=== PATIENT | male | born 1950 | race Caucasian/White ===

== ENCOUNTER 2017-06-20 14:32 | Outpatient (CLI) | payer MEDICARE, OTHER ==
[2017-06-20 13:42] LABS: BASOPHILS % (AUTO) 0.6 %; EOSINOPHILS # (AUTO) 0.2 10^3/uL (0.0-0.7); EOSINOPHILS % (AUTO) 4.2 %; HCT - HEMATOCRIT 42.8 % (42.0-52.0); HGB - HEMOGLOBIN 14.7 g/dL (14.0-18.0); LYMPHOCYTES # (AUTO) 1.8 10^3/uL (1.5-3.5); LYMPHOCYTES % (AUTO) 33.6 %; MEAN CORPUSCULAR HEMOGLOBIN 33.1 pg (27.0-31.0); MEAN CORPUSCULAR HGB CONC 34.3 g/dL (32.0-36.0); MEAN CORPUSCULAR VOLUME 96.3 fL (80.0-94.0); MEAN PLATELET VOLUME 9.6 fL (7.4-11.4); MONOCYTES # (AUTO) 0.5 10^3/uL (0.0-1.0); MONOCYTES % (AUTO) 9.3 %; NEUTROPHILS # (AUTO) 2.8 10^3/uL (1.5-6.6); NEUTROPHILS % (AUTO) 52.3 %; NUCLEATED RED BLOOD CELLS AUTO 0.1 /100WBC; RED BLOOD COUNT 4.44 10^6/uL (4.70-6.10); RED CELL DISTRIBUTION WIDTH 12.9 % (12.0-15.0); UNCORRECTED WHITE BLOOD COUNT 5.3 x10^3/uL; WHITE BLOOD COUNT 5.3 x10^3/uL (4.8-10.8)
[2017-06-20 14:03] LABS: ALBUMIN/GLOBULIN RATIO 1.6 (1.0-2.2); BILIRUBIN,TOTAL 0.9 mg/dL (0.2-1.0); CREATININE 0.9 mg/dL (0.6-1.2); TOTAL PROTEIN 6.8 g/dL (6.7-8.2)
== END 2017-06-20 14:33 | disposition home or self-care (01) ==
LOC: LAB.R 14:32
PROVIDERS: ATTEND Internal Medicine
DX: I10 Essential (primary) hypertension (principal); Z12.5 Encounter for screening for malignant neoplasm of prostate
CPT/HCPCS: 80053; 85025; G0103; 84153

== ENCOUNTER 2017-12-11 08:00 | Outpatient (CLI) | payer MEDICARE, OTHER ==
[2017-12-11 13:52] LABS: ALBUMIN 4.3 g/dL (3.2-5.5); ALBUMIN/GLOBULIN RATIO 1.6 (1.0-2.2); BILIRUBIN,TOTAL 0.9 mg/dL (0.2-1.0); CALCIUM 9.1 mg/dL (8.5-10.3); CREATININE 0.9 mg/dL (0.6-1.2)
== END 2017-12-11 08:01 ==
LOC: LAB.R 08:00
PROVIDERS: ATTEND Nurse Practitioner Primary Care
DX: I49.3 Ventricular premature depolarization (principal)
CPT/HCPCS: 80053

== ENCOUNTER 2018-02-13 08:00 | Outpatient (CLI) | payer MEDICARE, OTHER ==
[2018-02-13 11:52] LABS: BASOPHILS % (AUTO) 0.5 %; EOSINOPHILS # (AUTO) 0.2 10^3/uL (0.0-0.7); EOSINOPHILS % (AUTO) 4.1 %; HGB - HEMOGLOBIN 14.6 g/dL (14.0-18.0); LYMPHOCYTES # (AUTO) 1.5 10^3/uL (1.5-3.5); LYMPHOCYTES % (AUTO) 31.9 %; MEAN CORPUSCULAR HEMOGLOBIN 34.1 pg (27.0-31.0); MEAN CORPUSCULAR HGB CONC 34.1 g/dL (32.0-36.0); MEAN PLATELET VOLUME 9.8 fL (7.4-11.4); MONOCYTES # (AUTO) 0.5 10^3/uL (0.0-1.0); NEUTROPHILS # (AUTO) 2.5 10^3/uL (1.5-6.6); NEUTROPHILS % (AUTO) 53.5 %; PLT - PLATELET COUNT 178 10^3/uL (130-450); RED BLOOD COUNT 4.27 10^6/uL (4.70-6.10); WHITE BLOOD COUNT 4.8 x10^3/uL (4.8-10.8)
[2018-02-13 12:14] LABS: ALBUMIN 3.9 g/dL (3.2-5.5); ALBUMIN/GLOBULIN RATIO 1.4 (1.0-2.2); ALKALINE PHOSPHATASE 44 IU/L (42-121); ALT ALANINE AMINOTRANSFERASE 21 IU/L (10-60); AST ASPARTATE AMINOTRANSFERASE 27 IU/L (10-42); BILIRUBIN,TOTAL 1.1 mg/dL (0.2-1.0); BUN - BLOOD UREA NITROGEN 16 mg/dL (6-20); CALCIUM 8.8 mg/dL (8.5-10.3); CARBON DIOXIDE - CO2 27 mmol/L (21-32); CHLORIDE 102 mmol/L (101-111); CHOL/HDL RATIO 2.6 (<5.0); CHOLESTEROL 155 mg/dL; CREATININE 0.9 mg/dL (0.6-1.2); GFR - MDRD 84 (>89); GLUCOSE 110 mg/dL (70-100); HDL CHOLESTEROL 59 mg/dL; LDL CHOLESTEROL,CALCULATED 87 mg/dL; LDL/HDL RATIO 1.5 (<3.6); SODIUM 137 mmol/L (135-145); TOTAL PROTEIN 6.6 g/dL (6.7-8.2); VLDL CHOLESTEROL 9 mg/dL
== END 2018-02-13 08:01 | disposition home or self-care (01) ==
LOC: LAB.R 08:00
PROVIDERS: ATTEND Internal Medicine
DX: G60.9 Hereditary and idiopathic neuropathy, unspecified (principal); I49.3 Ventricular premature depolarization; K22.70 Barrett's esophagus without dysplasia; M19.90 Unspecified osteoarthritis, unspecified site; I10 Essential (primary) hypertension; Z79.899 Other long term (current) drug therapy
CPT/HCPCS: 80053; 80061; 83721; 85025

== ENCOUNTER 2018-03-03 08:03 | Outpatient (CLI) | payer MEDICARE, OTHER ==
[2018-03-03 12:58] LABS: HB2 TOTAL 16.9 g/dL; HEMOGLOBIN A1C 0.6 g/dL; HEMOGLOBIN A1C % 5.4 % (4.6-6.2)
[2018-03-04 10:07] LABS: HEPATITIS C ANTIBODY NON-REACTIVE (NON-REACTIVE)
== END 2018-03-03 08:04 | disposition home or self-care (01) ==
LOC: LAB.R 08:03
PROVIDERS: ATTEND Internal Medicine
DX: Z00.8 Encounter for other general examination (principal); R73.9 Hyperglycemia, unspecified; Z72.89 Other problems related to lifestyle
CPT/HCPCS: 82947; 83036; 86803

== ENCOUNTER 2018-05-28 18:34 | Outpatient (CLI) | payer MEDICARE, OTHER ==
--- NOTE | 2018-05-29 04:27 | XRAY Report ---
Reason: HIP JOINT PAIN,RIGHT Procedure Date: 05/28/2018 Accession Number: [id number] / [id number] Procedure: XR - Hip w/Pelvis 2-3V RT CPT Code: FULL RESULT: EXAM: RIGHT HIP AND PELVIS RADIOGRAPHY EXAM DATE: 05/28/2018 06:56 PM. HISTORY: HIP JOINT PAIN,RIGHT. COMPARISONS: None. TECHNIQUE: 1 view of the pelvis and 1 view of the hip. FINDINGS: Bones: Normal. No fracture or bone lesion. Joints: Mild osteoarthritis. Soft Tissues: Normal. No soft tissue swelling. IMPRESSION: Mild osteoarthritis. No evidence of fracture. RADIA
== END 2018-05-28 18:35 | disposition home or self-care (01) ==
LOC: DI 18:34
PROVIDERS: ATTEND Internal Medicine
DX: M16.11 Unilateral primary osteoarthritis, right hip (principal)

== ENCOUNTER 2018-11-09 13:49 | Outpatient (CLI) | payer MEDICARE, OTHER | END 2018-11-09 13:50 | disposition home or self-care (01) | LOC: DI 13:49 | PROVIDERS: ATTEND Nurse Practitioner | DX: I49.9 Cardiac arrhythmia, unspecified (principal) | CPT/HCPCS: 93306 ==

== ENCOUNTER 2018-12-01 09:20 | Emergency (ER) | payer MEDICARE, OTHER ==
[2018-12-01 09:44] VITALS: BP 149/78
[2018-12-01] MEDS ORDERED: DEXAMETHASONE 10 MG/ML VIAL PO STA (11:16)
--- NOTE | 2018-12-01 11:18 | ED Physician Documentation ---
PD HPI BACK PAIN - Stated complaint Stated Complaint: BACK PX - Chief complaint Chief Complaint: Back Pain - History obtained from History obtained from: Patient - History of Present Illness Timing - onset: How many weeks ago (3) Timing - duration: Weeks (3) Timing - details: Abrupt onset, Still present, Waxing and waning Location: Lower, Left Quality: Pain, Spasm, Sharp, Similar to prior episodes Associated symptoms: Numbness. No: Fever, Weakness, Incontinent of urine, Lorena ble to urinate, Hematuria, Incontinent of stool Improves with: Rest, Ice, Position Worsened by: Movement, Lifting Contributing factors: Other (standing prolonged on uneven ground) Similar symptoms before: Has not had sx before Recently seen: Not recently seen - Additional information Additional information: Previously well 68-year-old male was helping out at the [employer] and he was standing in a position for extended period time on uneven ground and the following day developed some pain in his lower back on the left side radiating down the left leg. This seemed to get a little bit better and yesterday was much worse. He has got some numbness into the dorsum of the foot and he has pain down the side of the leg and into the sciatic notch on the left side. He denies any saddle anesthesia or incontinence of urine or stool. Review of Systems Constitutional: denies: Fever, Chills, Myalgias Eyes: denies: Decreased vision Ears: denies: Ear pain Nose: denies: Congestion Respiratory: denies: Cough GI: denies: Abdominal Pain, Nausea : denies: Dysuria, Frequency Skin: denies: Rash Musculoskeletal: reports: Back pain, Extremity pain. denies: Neck pain Neurologic: reports: Numbness. denies: Generalized weakness, Focal weakness PD PAST MEDICAL HISTORY - Past Medical History Cardiovascular: Hypertension Respiratory: None Endocrine/Autoimmune: None GI: GERD, Hepatitis : Kidney stones Psych: None, Claustrophobia Musculoskeletal: None Derm: None - Past Surgical History General: Colonoscopy, EGD, Other Ortho: Spine surgery HEENT: Tonsil/Adenoidectomy - Present Medications Home Medications: Ambulatory Orders Medication Instructions Recorded Confirmed Lansoprazole [Prevacid] 30 mg PO DAILY 05/11/13 08/07/16 Losartan Potassium [Cozaar] 100 mg PO DAILY 05/11/13 08/07/16 Multivitamin [Multi-Vitamin Daily] 1 each PO DAILY 05/11/13 08/07/16 Tumeric 1 tab PO DAILY 05/11/13 08/07/16 Vitamin B Complex 1 each PO DAILY 05/11/13 08/07/16 [place]-3 Fatty Acids [Fish Oil] 300 mg ORAL DAILY 06/22/14 08/07/16 Cyclobenzaprine [Flexeril] 10 mg PO TID PRN #20 tablet 12/01/18 Hydrocodone/Acetaminophen 1 - 2 each PO Q6H PRN #14 tablet 12/01/18 [Hydrocodon-Acetaminophen 5-325] - Allergies Allergies/Adverse Reactions: Allergies Allergy/AdvReac Type Severity Reaction Status Date / Time No Known Drug Allergies Allergy Verified 12/01/18 09:43 PD ED PE NORMAL - Vitals Vital signs reviewed: Yes (hypertensive ) - General General: Alert and oriented X 3, No acute distress, Well developed/nourished - HEENT HEENT: Atraumatic, PERRL, EOMI - Neck Neck: Supple, no meningeal sign - Respiratory Respiratory: No respiratory distress - Back Back: No CVA TTP, No spinal TTP, Other (There is point tenderness to the paraspinous muscles on the left side extending into the sciatic notch on the left side. ) - Derm Derm: Normal color, Warm and dry, No rash - Extremities Extremities: No deformity, No edema - Neuro Neuro: Alert and oriented X 3, tip mender 2-12 intact, No motor deficit, No sensory deficit, Normal speech Eye Opening: Spontaneous Motor: Obeys Commands Verbal: Oriented GCS Score: 15 - Psych Psych: Normal mood, Normal affect Results - Vitals Vitals: Vital Signs - 24 hr 12/01/18 09:42 Temperature 36.0 C L Heart Rate 65 Respiratory 20 Rate Blood Pressure 149/78 H O2 Saturation 100 Oxygen O2 Source Room air PD MEDICAL DECISION MAKING - ED course Complexity details: considered differential, d/w patient ED course: 68-year-old male with acute sciatica is administered dexamethasone 10 mg orally here in the ED and we will place him on some pain medication and muscle relaxant. Departure - Departure Disposition: 01 Home, Self Care Clinical Impression: Sciatica Qualifiers: Laterality: left Qualified Code(s): M54.32 - Sciatica, left side Instructions: ED Sciatica Follow-Up: Sugey Escobar ARNP, [facility] [Primary Care Provider] - Prescriptions: Cyclobenzaprine [Flexeril] 10 mg PO TID PRN #20 tablet PRN Reason: Spasms Hydrocodone/Acetaminophen [Hydrocodon-Acetaminophen 5-325] 1 - 2 each PO Q6H PRN #14 tablet PRN Reason: pain
[2018-12-01] MEDS ORDERED: CHERRY SYRUP 10 ML UDC PO ONE (11:23)
== END 2018-12-01 11:24 | disposition home or self-care (01) ==
LOC: ED 09:20
DX: M54.32 Sciatica, left side (principal); I10 Essential (primary) hypertension
CPT/HCPCS: 99283; A9270

== ENCOUNTER 2018-12-17 15:11 | Outpatient (CLI) | payer MEDICARE, OTHER ==
--- NOTE | 2018-12-18 13:18 | MRI Report ---
Reason: SCIATICA,LEFT,PERIPHERAL NEUROPATHY Procedure Date: 12/17/2018 Accession Number: [id number] / [id number] Procedure: MRI - Lumbar Spine W/O CPT Code: FULL RESULT: EXAM: MRI LUMBAR SPINE WITHOUT CONTRAST EXAM DATE: 12/17/2018 04:19 PM. CLINICAL HISTORY: Sciatica, left, peripheral neuropathy. COMPARISON: None. TECHNIQUE: Multiplanar, multisequence T1-weighted and fluid-sensitive sequences of the lumbar spine from T12 to S1 without contrast. Other: None. FINDINGS: Spinal Canal: The conus terminates at L1. The conus medullaris and cauda equina are unremarkable. Alignment: No scoliosis or spondylolisthesis. Bone Marrow: Five [id number] lumbar vertebral bodies are assumed. No gross fractures or bone lesions. No bone marrow replacement. Disk Levels/Facets: T12-L1: Some disk dehydration. Prominent facets. No stenosis. L1-L2: Some disk dehydration. Prominent facets, no stenosis. L2-L3: Disk dehydration. Prominent facets, no stenosis. L3-L4: Disk dehydration, prominent facets. No stenosis. L4-L5: Disk dehydration, slightly short pedicles, prominent facets and thickened ligamentum flavum. Inferior left lateral disk extrusion extends into the lateral recess and causes effacement of the left L5 root in the subarticular zone. Series 301 image 4, series 601 image 11. This measures 5.7 x 9.2 mm transversely and extends inferiorly for a distance of 12.1 mm. L5-S1: A mild broad-based disk bulge is seen. Prominent facets. No stenosis. Musculature: Moderate fatty atrophy of the multifidus muscle is seen. Other: The partially visualized retroperitoneum is unremarkable. IMPRESSION: 1. Spinal cord terminates at L1 which is normal. No scoliosis, no listhesis is noted. Moderate multifidus muscle fatty atrophy is seen. No fractures. 2. L2-L3 shows disk dehydration and prominent facets, no stenosis. 3. L3-L4 shows disk dehydration, prominent facets and no stenosis. 4. L4-L5 shows disk dehydration, short pedicles and prominent facets. Inferior left lateral disk extrusion extends to the lateral recess with effacement of the left L5 root in the subarticular zone. 5. L5-S1 shows a mild broad-based bulge and prominent facets but no stenosis. Comment: The following findings are so common in adults without low back pain that while we report their presence, they must be interpreted with caution and in the context of the clinical situation. (Reference Jenniek et al, Spine 2001) Prevalence of findings in patients without low back pain: Disk degeneration (any evidence): 92% Disk desiccation/T2 signal loss: 83% Disk height loss: 56% Disk bulge: 64% Disk protrusion: 32% Annular tear/high intensity zone: 38% RADIA
== END 2018-12-17 15:12 | disposition home or self-care (01) ==
LOC: DI 15:11
PROVIDERS: ATTEND Nurse Practitioner
DX: M51.36 Other intervertebral disc degeneration, lumbar region (principal); M51.26 Other intervertebral disc displacement, lumbar region
CPT/HCPCS: 72148

== ENCOUNTER 2019-01-16 15:37 | Outpatient (CLI) | payer MEDICARE, OTHER ==
[2019-01-16 16:12] LABS: BASOPHILS % (AUTO) 0.8 %; EOSINOPHILS # (AUTO) 0.1 10^3/uL (0.0-0.7); EOSINOPHILS % (AUTO) 2.7 %; HGB - HEMOGLOBIN 14.4 g/dL (14.0-18.0); LYMPHOCYTES # (AUTO) 1.8 10^3/uL (1.5-3.5); LYMPHOCYTES % (AUTO) 33.8 %; MEAN CORPUSCULAR HEMOGLOBIN 32.4 pg (27.0-31.0); MEAN CORPUSCULAR HGB CONC 33.4 g/dL (32.0-36.0); MEAN CORPUSCULAR VOLUME 97.3 fL (80.0-94.0); MEAN PLATELET VOLUME 8.6 fL (7.4-11.4); MONOCYTES # (AUTO) 0.5 10^3/uL (0.0-1.0); MONOCYTES % (AUTO) 9.9 %; NEUTROPHILS # (AUTO) 2.7 10^3/uL (1.5-6.6); NEUTROPHILS % (AUTO) 52.8 %; PLT - PLATELET COUNT 208 10^3/uL (130-450); RED BLOOD COUNT 4.44 10^6/uL (4.70-6.10); RED CELL DISTRIBUTION WIDTH 12.9 % (12.0-15.0); WHITE BLOOD COUNT 5.2 x10^3/uL (4.8-10.8)
[2019-01-16 16:18] LABS: INR 1.1 (0.8-1.2); PT - PROTHROMBIN TIME 11.9 secs (9.9-12.6)
[2019-01-16 16:23] LABS: ALBUMIN 4.4 g/dL (3.2-5.5); ALBUMIN/GLOBULIN RATIO 1.6 (1.0-2.2); BILIRUBIN,TOTAL 0.6 mg/dL (0.2-1.0); CALCIUM 9.1 mg/dL (8.5-10.3); CREATININE 0.9 mg/dL (0.6-1.2); TOTAL PROTEIN 7.2 g/dL (6.7-8.2)
[2019-01-16 16:47] LABS: BILIRUBIN,URINE NEGATIVE (NEGATIVE); GLUCOSE, URINE (UA) NEGATIVE (NEGATIVE); KETONES,URINE (UA) NEGATIVE (NEGATIVE); LEUKOCYTE ESTERASE, URINE NEGATIVE (NEGATIVE); NITRITE,URINE NEGATIVE (NEGATIVE); OCCULT BLOOD,URINE NEGATIVE (NEGATIVE); PH,URINE 5.5 PH (5.0-7.5); PROTEIN,URINE NEGATIVE (NEGATIVE); UROBILINOGEN,URINE 0.2 (NORMAL) E.U./dL (NORMAL)
[2019-01-16 16:48] LABS: CLARITY,URINE CLEAR (CLEAR)
== END 2019-01-16 15:38 | disposition home or self-care (01) ==
LOC: LAB 15:37
PROVIDERS: ATTEND Neurological Surgery
DX: Z01.812 Encounter for preprocedural laboratory examination (principal); R20.0 Anesthesia of skin; M51.16 Intervertebral disc disorders with radiculopathy, lumbar region
CPT/HCPCS: 36415; 80053; 81001; 81003; 85025; 85610

== ENCOUNTER 2019-02-26 07:36 | Day surgery (SDC) | payer MEDICARE, OTHER ==
[~2019-02-26 07:36] MED LIST: LIDO GARGLE 30 ML BOTTLE ONE
[2019-02-26] MEDS ORDERED: LACTATED RINGERS 1,000 ML IV ONE (07:41)
[2019-02-26] MEDS ORDERED: MIDAZOLAM 2 MG/2 ML VIAL IVP ONE (08:42)
[2019-02-26] MEDS ORDERED: fentaNYL 250 MCG/5 ML VIAL IVP ONE (08:42)
[2019-02-26 10:37] VITALS: BP 126/74
== END 2019-02-26 07:37 | disposition home or self-care (01) ==
LOC: SDS 07:36
PROVIDERS: ATTEND Surgery
PROC: 0DBN8ZZ Excision of Sigmoid Colon, Via Natural or Artificial Opening Endoscopic (ICD-10-PCS; principal; 2019-02-26 08:30)
PROC: 0DB58ZX Excision of Esophagus, Via Natural or Artificial Opening Endoscopic, Diagnostic (ICD-10-PCS; 2019-02-26 08:30)
DX: Z12.11 Encounter for screening for malignant neoplasm of colon (principal); K63.5 Polyp of colon; K57.30 Diverticulosis of large intestine without perforation or abscess without bleeding; K64.8 Other hemorrhoids; K22.70 Barrett's esophagus without dysplasia; K44.9 Diaphragmatic hernia without obstruction or gangrene; I10 Essential (primary) hypertension; Z85.828 Personal history of other malignant neoplasm of skin; Z79.899 Other long term (current) drug therapy
CPT/HCPCS: 43239; 45380; A9270; J3010; J7120

== ENCOUNTER 2019-05-18 08:13 | Outpatient (CLI) | payer MEDICARE, OTHER ==
[2019-05-18 09:18] LABS: BASOPHILS % (AUTO) 0.5 %; EOSINOPHILS # (AUTO) 0.4 10^3/uL (0.0-0.7); EOSINOPHILS % (AUTO) 7.1 %; HGB - HEMOGLOBIN 15.1 g/dL (14.0-18.0); LYMPHOCYTES # (AUTO) 1.8 10^3/uL (1.5-3.5); LYMPHOCYTES % (AUTO) 28.8 %; MEAN CORPUSCULAR HEMOGLOBIN 33.6 pg (27.0-31.0); MEAN CORPUSCULAR HGB CONC 34.6 g/dL (32.0-36.0); MEAN CORPUSCULAR VOLUME 96.9 fL (80.0-94.0); MEAN PLATELET VOLUME 10.6 fL (7.4-11.4); MONOCYTES # (AUTO) 0.6 10^3/uL (0.0-1.0); MONOCYTES % (AUTO) 9.8 %; NEUTROPHILS # (AUTO) 3.4 10^3/uL (1.5-6.6); NEUTROPHILS % (AUTO) 53.6 %; PLT - PLATELET COUNT 200 10^3/uL (130-450); RED CELL DISTRIBUTION WIDTH 12.3 % (12.0-15.0); WHITE BLOOD COUNT 6.2 x10^3/uL (4.8-10.8)
[2019-05-18 09:39] LABS: ALBUMIN 4.1 g/dL (3.2-5.5); ALBUMIN/GLOBULIN RATIO 1.4 (1.0-2.2); ALKALINE PHOSPHATASE 43 IU/L (42-121); ALT ALANINE AMINOTRANSFERASE 24 IU/L (10-60); AST ASPARTATE AMINOTRANSFERASE 26 IU/L (10-42); BILIRUBIN,TOTAL 0.7 mg/dL (0.2-1.0); BUN - BLOOD UREA NITROGEN 19 mg/dL (6-20); CALCIUM 9.1 mg/dL (8.5-10.3); CARBON DIOXIDE - CO2 30 mmol/L (21-32); CHLORIDE 97 mmol/L (101-111); CHOL/HDL RATIO 3.1 (<5.0); CHOLESTEROL 163 mg/dL; CREATININE 0.9 mg/dL (0.6-1.2); GFR - MDRD 83 (>89); GLUCOSE 107 mg/dL (70-100); HDL CHOLESTEROL 53 mg/dL; SODIUM 137 mmol/L (135-145); TOTAL PROTEIN 7.1 g/dL (6.7-8.2)
== END 2019-05-18 08:14 | disposition home or self-care (01) ==
LOC: LAB 08:13
PROVIDERS: ATTEND Nurse Practitioner
DX: Z00.00 Encounter for general adult medical examination without abnormal findings (principal); I49.9 Cardiac arrhythmia, unspecified; I10 Essential (primary) hypertension; G64 Other disorders of peripheral nervous system; N20.0 Calculus of kidney; K22.70 Barrett's esophagus without dysplasia; Z12.5 Encounter for screening for malignant neoplasm of prostate
CPT/HCPCS: 36415; 80061; 82607; G0103; 80053; 83721; 84153; 84443; 85025

== ENCOUNTER 2019-07-17 10:49 | Outpatient (CLI) | payer MEDICARE, OTHER ==
[2019-07-17 11:21] LABS: BASOPHILS % (AUTO) 0.3 %; EOSINOPHILS # (AUTO) 0.1 10^3/uL (0.0-0.7); EOSINOPHILS % (AUTO) 1.8 %; HGB - HEMOGLOBIN 13.1 g/dL (14.0-18.0); LYMPHOCYTES # (AUTO) 1.2 10^3/uL (1.5-3.5); LYMPHOCYTES % (AUTO) 17.9 %; MEAN CORPUSCULAR HEMOGLOBIN 31.7 pg (27.0-31.0); MEAN CORPUSCULAR HGB CONC 33.5 g/dL (32.0-36.0); MEAN CORPUSCULAR VOLUME 94.7 fL (80.0-94.0); MEAN PLATELET VOLUME 9.3 fL (7.4-11.4); MONOCYTES # (AUTO) 0.9 10^3/uL (0.0-1.0); MONOCYTES % (AUTO) 12.9 %; NEUTROPHILS # (AUTO) 4.5 10^3/uL (1.5-6.6); NEUTROPHILS % (AUTO) 66.8 %; PLT - PLATELET COUNT 252 10^3/uL (130-450); RED BLOOD COUNT 4.13 10^6/uL (4.70-6.10); RED CELL DISTRIBUTION WIDTH 12.2 % (12.0-15.0); WHITE BLOOD COUNT 6.7 x10^3/uL (4.8-10.8)
[2019-07-17 11:51] LABS: ALBUMIN 3.7 g/dL (3.2-5.5); BILIRUBIN,TOTAL 0.6 mg/dL (0.2-1.0); CALCIUM 8.9 mg/dL (8.5-10.3); CREATININE 0.8 mg/dL (0.6-1.2); CRP - C-REACTIVE PROTEIN 10.2 mg/dL (0-1.0); TOTAL PROTEIN 7.3 g/dL (6.7-8.2)
== END 2019-07-17 10:50 | disposition home or self-care (01) ==
LOC: LAB 10:49
PROVIDERS: ATTEND Nurse Practitioner
DX: H53.9 Unspecified visual disturbance (principal); R51 Headache
CPT/HCPCS: 36415; 80053; 85025; 85651; 86140

== ENCOUNTER 2019-08-31 11:26 | Outpatient (CLI) | payer MEDICARE, OTHER ==
[2019-08-31 11:53] LABS: BASOPHILS % (AUTO) 0.5 %; EOSINOPHILS # (AUTO) 0.2 10^3/uL (0.0-0.7); EOSINOPHILS % (AUTO) 2.9 %; HGB - HEMOGLOBIN 15.4 g/dL (14.0-18.0); LYMPHOCYTES # (AUTO) 1.5 10^3/uL (1.5-3.5); LYMPHOCYTES % (AUTO) 25.6 %; MEAN CORPUSCULAR HEMOGLOBIN 32.5 pg (27.0-31.0); MEAN CORPUSCULAR HGB CONC 33.3 g/dL (32.0-36.0); MEAN CORPUSCULAR VOLUME 97.7 fL (80.0-94.0); MEAN PLATELET VOLUME 9.6 fL (7.4-11.4); MONOCYTES # (AUTO) 0.7 10^3/uL (0.0-1.0); MONOCYTES % (AUTO) 12.2 %; NEUTROPHILS # (AUTO) 3.4 10^3/uL (1.5-6.6); NEUTROPHILS % (AUTO) 58.3 %; PLT - PLATELET COUNT 262 10^3/uL (130-450); RED BLOOD COUNT 4.74 10^6/uL (4.70-6.10); WHITE BLOOD COUNT 5.8 x10^3/uL (4.8-10.8)
[2019-08-31 12:12] LABS: ALBUMIN/GLOBULIN RATIO 1.3 (1.0-2.2); BILIRUBIN,TOTAL 0.6 mg/dL (0.2-1.0); CALCIUM 9.1 mg/dL (8.5-10.3); CREATININE 0.9 mg/dL (0.6-1.2)
[2019-08-31 12:14] LABS: HB2 TOTAL 15.6 g/dL; HEMOGLOBIN A1C 0.76 g/dL; HEMOGLOBIN A1C % 6.6 % (4.6-6.2)
== END 2019-08-31 11:27 | disposition home or self-care (01) ==
LOC: LAB 11:26
PROVIDERS: ATTEND Nurse Practitioner
DX: M79.10 Myalgia, unspecified site (principal); R73.9 Hyperglycemia, unspecified; R51 Headache; R73.01 Impaired fasting glucose; K22.70 Barrett's esophagus without dysplasia
CPT/HCPCS: 36415; 80053; 83036; 85025; 85651; 86140

== ENCOUNTER 2019-09-01 09:59 | Outpatient (CLI) | payer MEDICARE, OTHER ==
[2019-09-01 10:58] LABS: RHEUMATOID FACTOR NEGATIVE (Negative)
[2019-09-03 11:20] LABS: ANA SCREEN NEGATIVE (NEGATIVE)
== END 2019-09-01 10:00 | disposition home or self-care (01) ==
LOC: LAB 09:59
PROVIDERS: ATTEND Nurse Practitioner
DX: M79.10 Myalgia, unspecified site (principal); R51 Headache
CPT/HCPCS: 36415; 84550; 86038; 86200; 86430

== ENCOUNTER 2019-12-11 16:04 | Outpatient (CLI) | payer MEDICARE, OTHER ==
--- NOTE | 2019-12-11 17:29 | XRAY Report ---
Reason: RIB PAIN, LEFT SIDED,PLEURODYNIA Procedure Date: 12/11/2019 Accession Number: [id number] / [id number] Procedure: XR - Ribs Bilat w/Chest 4 View CPT Code: Addended Final Report FULL RESULT: EXAM: BILATERAL RIB RADIOGRAPHY EXAM DATE: 12/11/2019 04:37 PM. CLINICAL HISTORY: RIB PAIN, LEFT SIDED, PLEURODYNIA. COMPARISON: None. TECHNIQUE: 1 view of the chest and 2 views of the ribs. FINDINGS: Bones: Left seventh rib fracture posteriorly. Lungs: No focal opacities. No pneumothorax. No pleural effusions. Mediastinum: Heart and mediastinal contours are unremarkable. Other: None. IMPRESSION: Left seventh rib fracture RADIA The call report notification system was initiated by Dr. Elsie Mendez at 05:28 PM on 12/11/2019. ADDENDUM: 12/11/19 17:30 The above call report findings were discussed with Dr Escobar by Dr. Elsie Mendez at 05:30 PM on 12/11/2019.
== END 2019-12-11 16:05 | disposition home or self-care (01) ==
LOC: DI 16:04
PROVIDERS: ATTEND Nurse Practitioner
DX: S22.32XA Fracture of one rib, left side, initial encounter for closed fracture (principal)
CPT/HCPCS: 71111

== ENCOUNTER 2020-01-08 11:27 | Outpatient (CLI) | payer MEDICARE, OTHER ==
--- NOTE | 2020-01-09 09:45 | XRAY Report ---
Reason: LEFT RIB PAIN Procedure Date: 01/08/2020 Accession Number: [id number] / [id number] Procedure: WCP - Ribs w/PA Chest LT CPT Code: Final Report FULL RESULT: EXAM: LEFT RIB RADIOGRAPHY EXAM DATE: 01/08/2020 11:27 AM. CLINICAL HISTORY: Left rib pain. COMPARISON: RIBS BILAT W/CHEST 4 VIEW 12/11/2019 4:17 PM. TECHNIQUE: 1 view of the chest and 2 views of the ribs. FINDINGS: Bones: As seen on the prior exam, there is a minimally displaced fracture of the left posterior lateral seventh rib. Mild callus formation is present. The fracture line remains visible. The other visualized bones appear intact. No bone lesion. Lungs: No focal opacities. No pneumothorax. No pleural effusions. Mediastinum: Heart and mediastinal contours are unremarkable. There is mild atherosclerotic calcification of the aortic arch. Other: None. IMPRESSION: Healing fracture of the left posterior lateral seventh rib. Alignment is unchanged. No pneumothorax or pleural effusion. RADIA
== END 2020-01-08 11:28 | disposition home or self-care (01) ==
LOC: DI.WCP 11:27
PROVIDERS: ATTEND Nurse Practitioner
DX: S22.31XD Fracture of one rib, right side, subsequent encounter for fracture with routine healing (principal)

== ENCOUNTER 2022-05-17 09:00 | Outpatient (CLI) | payer MEDICARE, OTHER | END 2022-05-17 09:01 | disposition home or self-care (01) | LOC: DI 09:00 | PROVIDERS: ATTEND Internal Medicine | DX: I45.4 Nonspecific intraventricular block (principal); R06.09 Other forms of dyspnea; R60.9 Edema, unspecified; R53.83 Other fatigue; I08.0 Rheumatic disorders of both mitral and aortic valves | CPT/HCPCS: 93306 ==

== ENCOUNTER 2022-11-05 12:02 | Outpatient (CLI) | payer MEDICARE, OTHER ==
[2022-11-05] MEDS ORDERED: iohexoL-300 100 ML VIAL ONE (12:10)
[2022-11-05 12:22] LABS: CREATININE 0.8 mg/dL (0.6-1.2)
[2022-11-05] MEDS ORDERED: DIATRIZOATE MEGLU/DIATRIZO SOD 30 ML BOTTLE PO ONE (13:39)
[2022-11-05] MEDS ORDERED: iohexoL-300 100 ML VIAL IVP ONE (13:40)
--- NOTE | 2022-11-05 13:44 | CT Report ---
PROCEDURE: ABDOMEN/PELVIS W INDICATIONS: ABDOMINAL PAIN CONTRAST: 100ml Omnipaque 300 TECHNIQUE: After the administration of oral and IV contrast, 5 mm thick sections acquired from the diaphragms to the symphysis. 5 mm thick coronal and sagittal reformats were acquired. For radiation dose reducti on, the following was used: automated exposure control, adjustment of mA and/or kV according to mily ent size. COMPARISON: CT abdomen pelvis 04/17/2022 FINDINGS: Image quality: Excellent. ABDOMEN: Lung bases: Lung bases are clear. Heart size is normal. Solid organs: Liver and spleen are normal in size and enhancement. Gallbladder is unremarkable Job iary system is non dilated. Pancreas enhances normally. No adrenal nodules. Kidneys demonstrate no rmal size and enhancement, without hydronephrosis. Peritoneum and bowel: Bowel loops demonstrate normal wall thickness and caliber. Prominent colonic stool without obstruction. No free fluid or air. Nodes and vessels: No retroperitoneal or mesenteric adenopathy by size criteria. Aorta and inferior vena cava are normal in size. Miscellaneous: No ventral hernias. PELVIS: Genitourinary: Bladder wall thickness is normal. Miscellaneous: No inguinal hernias or adenopathy. Bones: No suspicious bony lesions. No vertebral body compression fractures. IMPRESSION: Prominent colonic stool consistent with constipation. No obstruction. Reviewed by: Yenifer Marshall MD on 11/05/2022 1:43 PM PST Approved by: Yenifer Marshall MD on 11/05/2022 1:43 PM PST Station ID: [id number]
== END 2022-11-05 12:03 | disposition home or self-care (01) ==
LOC: DI 12:02
PROVIDERS: ATTEND Internal Medicine
DX: R10.9 Unspecified abdominal pain (principal)
CPT/HCPCS: 36415; 74177; 82565; Q9963; Q9967